=== PATIENT | male | born 1950 | race African-American/Black ===

== ENCOUNTER 2017-10-19 19:02 | Inpatient (IN) | payer MEDICARE, OTHER ==
[~2017-10-19] VITALS: Ht 180.3 cm; Wt 64.4 kg
[~2017-10-19 19:02] MED LIST: DIVA500T35 PO; GLIP5 PO; METF500T6 PO; RISP1 PO; RISP2 PO
[2017-10-19] MEDS ORDERED: ASPI-1182 PO (19:26)
[2017-10-19] MEDS ORDERED: DIVA500T35 PO (19:26)
[2017-10-19] MEDS ORDERED: ATOR40TA28 PO (19:26)
[2017-10-19] MEDS ORDERED: TAMS0.4C32 PO (19:26)
[2017-10-19] MEDS ORDERED: CLOP75 PO (19:26)
[2017-10-19] MEDS ORDERED: TRAZ-144 PO (19:26)
[2017-10-19] MEDS ORDERED: METF500T6 PO (19:26)
[2017-10-19] MEDS ORDERED: RANI150T7 PO (19:26)
[2017-10-19] MEDS ORDERED: LISI40TA4 PO (19:26)
[2017-10-19] MEDS ORDERED: RISP4 PO (19:26)
[2017-10-19] MEDS ORDERED: AMLO-512 PO (19:26)
[2017-10-19] MEDS ORDERED: PIOG15TA66 PO (19:26)
[2017-10-19 20:50] LABS: BASOPHILS % (AUTO) 0.8 % (0.0-2.0); EOSINOPHILS % (AUTO) 0 % (1.0-6.0); HEMATOCRIT 36.1 % (41-53); HEMOGLOBIN 12.1 g/dL (13.5-17.5); LYMPHOCYTES # (AUTO) 0.6 K/uL (1.0-4.8); LYMPHOCYTES % (AUTO) 4.8 % (22.0-44.0); MEAN CORPUSCULAR HEMOGLOBIN 25.1 pg (26.0-34.0); MEAN CORPUSCULAR HGB CONC 33.5 G/dL (31.0-37.0); MEAN CORPUSCULAR VOLUME 75 fL (80-100); MONOCYTES % (AUTO) 14.9 % (2.0-9.0); NEUTROPHILS # (AUTO) 10.5 K/uL (1.8-7.7); NEUTROPHILS % (AUTO) 79.5 % (40.0-70.0); PLATELET COUNT (AUTO) 212 K/uL (150-450); RED BLOOD CELL COUNT(AUTO) 4.82 MIL/uL (4.50-5.90); RED CELL DISTRIBUTION WIDTH 15.7 % (11.5-14.5)
[2017-10-19 21:04] LABS: ANION GAP 11 mmol/L (8-16); CALCIUM, TOTAL 9.4 mg/dL (8.8-10.5); CARBON DIOXIDE 27 mmol/L (22-29); CHLORIDE 97 mmol/L (98-107); CREATININE 1.12 mg/dL (0.60-1.30); GLOMERULAR FILTR. RATE CALC > 60 mL/min (>60); GLUCOSE,RANDOM 147 mg/dL (70-110); SODIUM SERUM 135 mmol/L (136-145); UREA NITROGEN, BLOOD 22 mg/dL (7-18)
[2017-10-19 21:09] LABS: ALANINE AMINOTRANSFERASE 30 U/L (12-78); ALKALINE PHOSPHATASE 70 U/L (46-116); ASPARTATE AMINOTRANSFERASE 63 U/L (15-37); BILIRUBIN,TOTAL 0.6 mg/dL (0.1-1.0); LIPASE 124 U/L (73-393); TOTAL PROTEIN, SERUM 8.8 g/dL (6.4-8.2)
[2017-10-19] MEDS ORDERED: ACETAMINOPHEN 500 MG TABLET PO ONE (23:00)
[2017-10-19] MEDS ORDERED: SODIUM CHLORIDE 0.9% 1,000 ML IV ONE (23:15)
[2017-10-19] MEDS: VANCOMYCIN HCL 1.25 GM in DEXTROSE 5%-WATER 250 ML IV ONE (23:26)
[2017-10-19] MEDS ORDERED: PIPERACILLIN/TAZO 3.375 GM/D5W 50 ML IV ONE (23:30)
[2017-10-19] MEDS ORDERED: 0.9% SODIUM CHLORIDE 10 ML SYRINGE IVP PRN (23:30)
[2017-10-19] MEDS ORDERED: ACETAMINOPHEN 325 MG TABLET PO PRN (23:30)
[2017-10-19] MEDS ORDERED: ONDANSETRON HCL 4 MG/2 ML VIAL IVP PRN (23:30)
[2017-10-20] VITALS (8 sets, daily range): BP systolic 124–156; BP diastolic 59–84
[2017-10-20] MEDS ORDERED: MORPHINE SULFATE 4 MG/ML SYRINGE IVP PRN (00:30)
[2017-10-20] MEDS ORDERED: ALBUTEROL SULFATE 2.5 MG/0.5 ML NEB SOLUTION NEB PRN (00:30)
[2017-10-20] MEDS ORDERED: BISACODYL 10 MG RECTAL RECTAL SUPPOSITORY PR PRN (00:30)
[2017-10-20] MEDS ORDERED: DEXTROSE 50%-WATER 25 GM/50 ML SYRINGE IVP PRN (00:30)
[2017-10-20] MEDS ORDERED: ONDANSETRON HCL 4 MG/2 ML VIAL IVP PRN (00:30)
[2017-10-20] MEDS ORDERED: ACETAMINOPHEN 325 MG TABLET PO PRN (00:30)
[2017-10-20] MEDS ORDERED: IPRATROPIUM BROMIDE 0.5 MG/2.5 ML NEB SOLUTION NEB PRN (00:30)
[2017-10-20] MEDS: VANCOMYCIN HCL 1.25 GM in DEXTROSE 5%-WATER 250 ML IV ONE (01:08)
[2017-10-20 01:23] LABS: VALPROIC ACID 91 mcg/mL (50-100)
[2017-10-20] MEDS: SODIUM CHLORIDE 0.9% 1,000 ML IV SCH ×2 (01:50→17:19)
[2017-10-20 02:32] LABS: GLUCOMETER DEV NAME(LOC) 6N 1E; GLUCOSE,POINT OF CARE 174 MG/DL (70-110)
[2017-10-20] MEDS: INSULIN LISPRO 100 UNITS/ML SQ PRN ×4 (05:33→20:06)
[2017-10-20] MEDS ORDERED: SODIUM CHLORIDE 0.9% 500 ML IV ONE (05:47)
[2017-10-20] MEDS ORDERED: PIPERACILLIN/TAZO 3.375 GM/D5W 50 ML IV SCH (06:00)
[2017-10-20] MEDS: PIPERACILLIN/TAZO 3.375 GM/D5W 50 ML IV SCH ×3 (06:01→17:12)
[2017-10-20 06:02] LABS: BASOPHILS % (AUTO) 0.3 % (0.0-2.0); EOSINOPHILS % (AUTO) 0 % (1.0-6.0); HEMATOCRIT 32.7 % (41-53); LYMPHOCYTES # (AUTO) 1.4 K/uL (1.0-4.8); LYMPHOCYTES % (AUTO) 9.5 % (22.0-44.0); MEAN CORPUSCULAR HEMOGLOBIN 25.1 pg (26.0-34.0); MEAN CORPUSCULAR HGB CONC 33.6 G/dL (31.0-37.0); MEAN CORPUSCULAR VOLUME 75 fL (80-100); MONOCYTES # (AUTO) 2.9 K/uL (0.1-1.0); NEUTROPHILS # (AUTO) 10.2 K/uL (1.8-7.7); NEUTROPHILS % (AUTO) 70.2 % (40.0-70.0); PLATELET COUNT (AUTO) 203 K/uL (150-450); RED BLOOD CELL COUNT(AUTO) 4.38 MIL/uL (4.50-5.90); RED CELL DISTRIBUTION WIDTH 15.5 % (11.5-14.5)
[2017-10-20 06:13] LABS: GLUCOMETER DEV NAME(LOC) 6N 2D; GLUCOSE,POINT OF CARE 182 MG/DL (70-110)
[2017-10-20 06:16] LABS: HEMOGLOBIN A1C 7.5 % (4.5-6.2)
[2017-10-20 06:40] LABS: % IRON SATURATION 10.3 % (30-44); IRON, SERUM 20 mcg/dL (50-175); TOTAL IRON BINDING CAPACITY 193 mcg/dL (250-450)
[2017-10-20 07:04] LABS: ALANINE AMINOTRANSFERASE 22 U/L (12-78); ALBUMIN 2.4 g/dL (3.4-5.0); ALKALINE PHOSPHATASE 50 U/L (46-116); ANION GAP 9 mmol/L (8-16); ASPARTATE AMINOTRANSFERASE 43 U/L (15-37); BILIRUBIN,TOTAL 0.5 mg/dL (0.1-1.0); CALCIUM, TOTAL 8.7 mg/dL (8.8-10.5); CARBON DIOXIDE 27 mmol/L (22-29); CHLORIDE 103 mmol/L (98-107); CREATININE 1.05 mg/dL (0.60-1.30); FERRITIN 495 ng/mL (26-388); FREE T4 (FREE THYROXINE) 1.24 ng/dL (0.76-1.46); GLOMERULAR FILTR. RATE CALC > 60 mL/min (>60); GLUCOSE,RANDOM 208 mg/dL (70-110); PHOSPHORUS 3.9 mg/dL (2.5-4.9); POTASSIUM 4.8 mmol/L (3.5-5.1); SODIUM SERUM 139 mmol/L (136-145); THYROID STIMULATING HORMONE 1.08 uIU/mL (0.36-3.74); TOTAL PROTEIN, SERUM 7.1 g/dL (6.4-8.2); UREA NITROGEN, BLOOD 22 mg/dL (7-18)
[2017-10-20 07:22] LABS: LACTIC ACID 4.4 mmol/L (0.4-2.0)
[2017-10-20] MEDS ORDERED: VANCOMYCIN HCL 750 MG in DEXTROSE 5%-WATER 250 ML IV SCH (08:00)
[2017-10-20] MEDS: DOCUSATE SODIUM 100 MG CAPSULE PO SCH ×2 (09:37→20:15)
[2017-10-20] MEDS: AmLODIPine BESYLATE 10 MG TABLET PO SCH (09:37)
[2017-10-20] MEDS: VANCOMYCIN HCL 1 GM/D5% WATER 200 ML IV SCH ×2 (09:37→20:03)
[2017-10-20] MEDS: ASPIRIN 81 MG EC TABLET PO SCH (09:38)
[2017-10-20] MEDS: CLOPIDOGREL BISULFATE 75 MG TABLET PO SCH (09:38)
[2017-10-20] MEDS: PANTOPRAZOLE SODIUM 40 MG DR TABLET PO SCH (09:39)
[2017-10-20] MEDS: ATORVASTATIN CALCIUM 40 MG TABLET PO SCH (09:39)
[2017-10-20] MEDS: LISINOPRIL 20 MG TABLET PO SCH (09:39)
[2017-10-20] MEDS: TAMSULOSIN HCL 0.4 MG CAPSULE PO SCH (09:39)
[2017-10-20] MEDS: HEPARIN SODIUM,PORCINE 5,000 UNITS/ML VIAL SQ SCH ×2 (09:41→20:04)
[2017-10-20 10:03] LABS: FOLATE SERUM 10.2 ng/mL (5.4-)
[2017-10-20] MEDS ORDERED: LORazepam 2 MG/ML VIAL IVP ONE (10:45)
[2017-10-20] MEDS ORDERED: TRAZ-147 PO (11:22)
[2017-10-20] MEDS: DIVALPROEX SODIUM 500 MG DR TABLET PO SCH ×3 (11:31→20:03)
[2017-10-20] MEDS: RisperiDONE 4 MG TABLET PO SCH (11:31)
[2017-10-20] MEDS ORDERED: LOPERAMIDE HCL 2 MG CAPSULE PO ONE (17:00)
[2017-10-21] MEDS: PIPERACILLIN/TAZO 3.375 GM/D5W 50 ML IV SCH ×5 (01:04→23:25)
[2017-10-21 04:43] VITALS: BP 154/76
[2017-10-21] MEDS: INSULIN LISPRO 100 UNITS/ML SQ PRN ×4 (05:17→20:06)
[2017-10-21 06:25] LABS: ANION GAP 6 mmol/L (8-16); CALCIUM, TOTAL 8.5 mg/dL (8.8-10.5); CARBON DIOXIDE 29 mmol/L (22-29); CHLORIDE 99 mmol/L (98-107); CREATININE 0.92 mg/dL (0.60-1.30); GLOMERULAR FILTR. RATE CALC > 60 mL/min (>60); GLUCOSE,RANDOM 175 mg/dL (70-110); POTASSIUM 3.5 mmol/L (3.5-5.1); SODIUM SERUM 134 mmol/L (136-145); UREA NITROGEN, BLOOD 14 mg/dL (7-18); VANCOMYCIN,RANDOM 7.1 mcg/mL (25.0-50.0)
[2017-10-21 06:31] LABS: BASOPHILS % (AUTO) 0.7 % (0.0-2.0); EOSINOPHILS % (AUTO) 0.9 % (1.0-6.0); HEMATOCRIT 31.7 % (41-53); HEMOGLOBIN 10.5 g/dL (13.5-17.5); LYMPHOCYTES # (AUTO) 1.5 K/uL (1.0-4.8); LYMPHOCYTES % (AUTO) 12.3 % (22.0-44.0); MEAN CORPUSCULAR HEMOGLOBIN 25.5 pg (26.0-34.0); MEAN CORPUSCULAR HGB CONC 33.2 G/dL (31.0-37.0); MEAN CORPUSCULAR VOLUME 77 fL (80-100); MONOCYTES # (AUTO) 1.6 K/uL (0.1-1.0); MONOCYTES % (AUTO) 13.8 % (2.0-9.0); NEUTROPHILS # (AUTO) 8.5 K/uL (1.8-7.7); NEUTROPHILS % (AUTO) 72.3 % (40.0-70.0); PLATELET COUNT (AUTO) 171 K/uL (150-450); RED BLOOD CELL COUNT(AUTO) 4.12 MIL/uL (4.50-5.90); RED CELL DISTRIBUTION WIDTH 15.9 % (11.5-14.5)
[2017-10-21 07:48] VITALS: BP 141/77
[2017-10-21] MEDS: VANCOMYCIN HCL 1 GM/D5% WATER 200 ML IV SCH (09:03)
[2017-10-21] MEDS: SODIUM CHLORIDE 0.9% 1,000 ML IV SCH ×2 (09:03→20:07)
[2017-10-21] MEDS: RisperiDONE 4 MG TABLET PO SCH (09:04)
[2017-10-21] MEDS: TAMSULOSIN HCL 0.4 MG CAPSULE PO SCH (09:04)
[2017-10-21] MEDS: ASPIRIN 81 MG EC TABLET PO SCH (09:04)
[2017-10-21] MEDS: PANTOPRAZOLE SODIUM 40 MG DR TABLET PO SCH (09:04)
[2017-10-21] MEDS: DIVALPROEX SODIUM 500 MG DR TABLET PO SCH ×3 (09:04→20:09)
[2017-10-21] MEDS: ATORVASTATIN CALCIUM 40 MG TABLET PO SCH (09:04)
[2017-10-21] MEDS: CLOPIDOGREL BISULFATE 75 MG TABLET PO SCH (09:04)
[2017-10-21] MEDS: AmLODIPine BESYLATE 10 MG TABLET PO SCH (09:04)
[2017-10-21] MEDS: DOCUSATE SODIUM 100 MG CAPSULE PO SCH ×2 (09:04→20:08)
[2017-10-21] MEDS: LISINOPRIL 20 MG TABLET PO SCH (09:04)
[2017-10-21] MEDS: HEPARIN SODIUM,PORCINE 5,000 UNITS/ML VIAL SQ SCH ×2 (09:05→20:09)
[2017-10-21 12:00] VITALS: BP 133/68
[2017-10-21 17:18] LABS: GLUCOMETER DEV NAME(LOC) 5N 1P; GLUCOSE,POINT OF CARE 177 MG/DL (70-110)
[2017-10-21 17:18] LABS: GLUCOMETER DEV NAME(LOC) 5N 1P; GLUCOSE,POINT OF CARE 179 MG/DL (70-110)
[2017-10-21 17:18] LABS: GLUCOMETER DEV NAME(LOC) 5N 1P; GLUCOSE,POINT OF CARE 223 MG/DL (70-110)
[2017-10-21 17:18] LABS: GLUCOMETER DEV NAME(LOC) 5N 1P; GLUCOSE,POINT OF CARE 183 MG/DL (70-110)
[2017-10-21] MEDS: VANCOMYCIN HCL 750 MG in DEXTROSE 5%-WATER 250 ML IV SCH (17:22)
[2017-10-21 20:09] VITALS: BP 120/69
[2017-10-21 20:28] LABS: GLUCOMETER DEV NAME(LOC) 5N 2S; GLUCOSE,POINT OF CARE 183 MG/DL (70-110)
[2017-10-21 23:32] LABS: GLUCOMETER DEV NAME(LOC) 5N 1P; GLUCOSE,POINT OF CARE 358 MG/DL (70-110)
[2017-10-21 23:32] LABS: GLUCOMETER DEV NAME(LOC) 5N 1P; GLUCOSE,POINT OF CARE 260 MG/DL (70-110)
[2017-10-22 00:10] VITALS: BP 129/50
[2017-10-22] MEDS: VANCOMYCIN HCL 750 MG in DEXTROSE 5%-WATER 250 ML IV SCH ×4 (00:14→23:30)
[2017-10-22 04:21] VITALS: BP 150/79
[2017-10-22] MEDS: PIPERACILLIN/TAZO 3.375 GM/D5W 50 ML IV SCH ×4 (05:12→23:05)
[2017-10-22] MEDS: INSULIN LISPRO 100 UNITS/ML SQ PRN ×4 (05:19→21:37)
[2017-10-22 06:49] LABS: ANION GAP 4 mmol/L (8-16); CALCIUM, TOTAL 8.4 mg/dL (8.8-10.5); CARBON DIOXIDE 27 mmol/L (22-29); CHLORIDE 100 mmol/L (98-107); CREATININE 0.82 mg/dL (0.60-1.30); GLOMERULAR FILTR. RATE CALC > 60 mL/min (>60); GLUCOSE,RANDOM 146 mg/dL (70-110); POTASSIUM 3.5 mmol/L (3.5-5.1); SODIUM SERUM 131 mmol/L (136-145); UREA NITROGEN, BLOOD 12 mg/dL (7-18)
[2017-10-22 08:51] VITALS: BP 139/76
[2017-10-22] MEDS: AmLODIPine BESYLATE 10 MG TABLET PO SCH (08:52)
[2017-10-22] MEDS: DOCUSATE SODIUM 100 MG CAPSULE PO SCH ×2 (08:52→21:35)
[2017-10-22] MEDS: SODIUM CHLORIDE 0.9% 1,000 ML IV SCH ×2 (08:52→21:30)
[2017-10-22] MEDS: TAMSULOSIN HCL 0.4 MG CAPSULE PO SCH (08:52)
[2017-10-22] MEDS: PANTOPRAZOLE SODIUM 40 MG DR TABLET PO SCH (08:53)
[2017-10-22] MEDS: RisperiDONE 4 MG TABLET PO SCH (08:53)
[2017-10-22] MEDS: HEPARIN SODIUM,PORCINE 5,000 UNITS/ML VIAL SQ SCH ×2 (08:53→21:35)
[2017-10-22] MEDS: CLOPIDOGREL BISULFATE 75 MG TABLET PO SCH (08:53)
[2017-10-22] MEDS: ASPIRIN 81 MG EC TABLET PO SCH (08:53)
[2017-10-22] MEDS: LISINOPRIL 20 MG TABLET PO SCH (08:53)
[2017-10-22] MEDS: ATORVASTATIN CALCIUM 40 MG TABLET PO SCH (08:53)
[2017-10-22] MEDS: DIVALPROEX SODIUM 500 MG DR TABLET PO SCH ×3 (08:53→21:35)
[2017-10-22 11:38] VITALS: BP 138/69
[2017-10-22 12:38] LABS: APPEARANCE,URINE CLEAR (CLEAR); BILIRUBIN,URINE NEGATIVE (NEGATIVE); GLUCOSE, URINE (UA) >=1000 mg/dL (NEGATIVE); KETONES,URINE TRACE mg/dL (NEGATIVE); LEUKOCYTE ESTERASE ,URINE NEGATIVE (NEGATIVE); NITRATE,URINE NEGATIVE (NEGATIVE); OCCULT BLOOD,URINE LARGE (NEGATIVE); PH,URINE 7.5 (5.0-8.0); PROTEIN,URINE NEGATIVE (NEGATIVE)
[2017-10-22 12:51] LABS: BACTERIA,URINE None Seen /HPF (None Seen); RBC,URINE 26-50 /HPF (0-2); WBC,URINE None Seen /HPF (0-5)
[2017-10-22 15:57] VITALS: BP 143/70
[2017-10-22 20:06] VITALS: BP 122/67
[2017-10-23] VITALS (7 sets, daily range): BP systolic 124–147; BP diastolic 69–80
[2017-10-23 00:18] LABS: GLUCOMETER DEV NAME(LOC) 5N 2S; GLUCOSE,POINT OF CARE 168 MG/DL (70-110)
[2017-10-23] MEDS: PIPERACILLIN/TAZO 3.375 GM/D5W 50 ML IV SCH ×4 (05:08→23:33)
[2017-10-23 06:30] LABS: BASOPHILS % (AUTO) 0.5 % (0.0-2.0); EOSINOPHILS % (AUTO) 1.8 % (1.0-6.0); HEMATOCRIT 30.4 % (41-53); HEMOGLOBIN 10.3 g/dL (13.5-17.5); LYMPHOCYTES # (AUTO) 1.2 K/uL (1.0-4.8); LYMPHOCYTES % (AUTO) 14.3 % (22.0-44.0); MEAN CORPUSCULAR HEMOGLOBIN 25.1 pg (26.0-34.0); MEAN CORPUSCULAR HGB CONC 33.9 G/dL (31.0-37.0); MEAN CORPUSCULAR VOLUME 74 fL (80-100); MONOCYTES # (AUTO) 1.9 K/uL (0.1-1.0); NEUTROPHILS # (AUTO) 5.1 K/uL (1.8-7.7); NEUTROPHILS % (AUTO) 60.4 % (40.0-70.0); PLATELET COUNT (AUTO) 237 K/uL (150-450); RED BLOOD CELL COUNT(AUTO) 4.12 MIL/uL (4.50-5.90); RED CELL DISTRIBUTION WIDTH 15.7 % (11.5-14.5)
[2017-10-23] MEDS: INSULIN LISPRO 100 UNITS/ML SQ PRN ×4 (06:31→21:33)
[2017-10-23 06:33] LABS: GLUCOMETER DEV NAME(LOC) 5S 2P; GLUCOSE,POINT OF CARE 189 MG/DL (70-110)
[2017-10-23 06:33] LABS: GLUCOMETER DEV NAME(LOC) 5S 2P; GLUCOSE,POINT OF CARE 157 MG/DL (70-110)
[2017-10-23 06:51] LABS: ANION GAP 5 mmol/L (8-16); CALCIUM, TOTAL 8.7 mg/dL (8.8-10.5); CARBON DIOXIDE 30 mmol/L (22-29); CHLORIDE 99 mmol/L (98-107); CREATININE 0.78 mg/dL (0.60-1.30); GLOMERULAR FILTR. RATE CALC > 60 mL/min (>60); GLUCOSE,RANDOM 174 mg/dL (70-110); POTASSIUM 3.6 mmol/L (3.5-5.1); SODIUM SERUM 134 mmol/L (136-145); UREA NITROGEN, BLOOD 15 mg/dL (7-18); VANCOMYCIN,RANDOM 11.7 mcg/mL (25.0-50.0)
[2017-10-23] MEDS: AmLODIPine BESYLATE 10 MG TABLET PO SCH (08:53)
[2017-10-23] MEDS: ASPIRIN 81 MG EC TABLET PO SCH (08:53)
[2017-10-23] MEDS: DOCUSATE SODIUM 100 MG CAPSULE PO SCH ×2 (08:53→21:24)
[2017-10-23] MEDS: TAMSULOSIN HCL 0.4 MG CAPSULE PO SCH (08:53)
[2017-10-23] MEDS: ATORVASTATIN CALCIUM 40 MG TABLET PO SCH (08:53)
[2017-10-23] MEDS: HEPARIN SODIUM,PORCINE 5,000 UNITS/ML VIAL SQ SCH ×2 (08:53→21:24)
[2017-10-23] MEDS: DIVALPROEX SODIUM 500 MG DR TABLET PO SCH ×3 (08:53→21:24)
[2017-10-23] MEDS: CLOPIDOGREL BISULFATE 75 MG TABLET PO SCH (08:53)
[2017-10-23] MEDS: LISINOPRIL 20 MG TABLET PO SCH (08:53)
[2017-10-23] MEDS: RisperiDONE 4 MG TABLET PO SCH (08:53)
[2017-10-23] MEDS: PANTOPRAZOLE SODIUM 40 MG DR TABLET PO SCH (08:53)
[2017-10-23] MEDS: VANCOMYCIN HCL 750 MG in DEXTROSE 5%-WATER 250 ML IV SCH ×2 (08:54→15:37)
[2017-10-23] MEDS: SODIUM CHLORIDE 0.9% 1,000 ML IV SCH ×2 (10:57→23:33)
[2017-10-23 13:27] LABS: GLUCOMETER DEV NAME(LOC) 5S 1M; GLUCOSE,POINT OF CARE 358 MG/DL (70-110)
[2017-10-23 13:27] LABS: GLUCOMETER DEV NAME(LOC) 5S 1M; GLUCOSE,POINT OF CARE 304 MG/DL (70-110)
[2017-10-23 13:27] LABS: GLUCOMETER DEV NAME(LOC) 5S 1M; GLUCOSE,POINT OF CARE 198 MG/DL (70-110)
[2017-10-23] MEDS: VANCOMYCIN HCL 1 GM/D5% WATER 200 ML IV SCH (23:34)
[2017-10-24 05:00] VITALS: BP 133/79
[2017-10-24] MEDS: MAGNESIUM HYDROXIDE SUSPENSION 30 ML UDCUP PO PRN ×2 (05:17→18:03)
[2017-10-24] MEDS: PIPERACILLIN/TAZO 3.375 GM/D5W 50 ML IV SCH ×3 (05:17→17:28)
[2017-10-24] MEDS: INSULIN LISPRO 100 UNITS/ML SQ PRN ×4 (05:45→20:54)
[2017-10-24 06:47] LABS: ANION GAP 4 mmol/L (8-16); CALCIUM, TOTAL 8.9 mg/dL (8.8-10.5); CARBON DIOXIDE 30 mmol/L (22-29); CHLORIDE 101 mmol/L (98-107); CREATININE 0.84 mg/dL (0.60-1.30); GLOMERULAR FILTR. RATE CALC > 60 mL/min (>60); GLUCOSE,RANDOM 214 mg/dL (70-110); POTASSIUM 3.9 mmol/L (3.5-5.1); SODIUM SERUM 135 mmol/L (136-145); UREA NITROGEN, BLOOD 13 mg/dL (7-18)
[2017-10-24 07:52] VITALS: BP 144/75
[2017-10-24] MEDS: RisperiDONE 4 MG TABLET PO SCH (08:13)
[2017-10-24] MEDS: DIVALPROEX SODIUM 500 MG DR TABLET PO SCH ×3 (08:13→20:52)
[2017-10-24] MEDS: PANTOPRAZOLE SODIUM 40 MG DR TABLET PO SCH (08:13)
[2017-10-24] MEDS: ATORVASTATIN CALCIUM 40 MG TABLET PO SCH (08:13)
[2017-10-24] MEDS: TAMSULOSIN HCL 0.4 MG CAPSULE PO SCH (08:13)
[2017-10-24] MEDS: LISINOPRIL 20 MG TABLET PO SCH (08:13)
[2017-10-24] MEDS: ASPIRIN 81 MG EC TABLET PO SCH (08:13)
[2017-10-24] MEDS: CLOPIDOGREL BISULFATE 75 MG TABLET PO SCH (08:13)
[2017-10-24] MEDS: HEPARIN SODIUM,PORCINE 5,000 UNITS/ML VIAL SQ SCH ×2 (08:13→20:52)
[2017-10-24] MEDS: AmLODIPine BESYLATE 10 MG TABLET PO SCH (08:13)
[2017-10-24] MEDS: DOCUSATE SODIUM 100 MG CAPSULE PO SCH ×2 (08:14→20:59)
[2017-10-24] MEDS: VANCOMYCIN HCL 1 GM/D5% WATER 200 ML IV SCH ×2 (08:14→16:09)
[2017-10-24 08:52] LABS: GLUCOMETER DEV NAME(LOC) 5S 2P; GLUCOSE,POINT OF CARE 285 MG/DL (70-110)
[2017-10-24 11:29] VITALS: BP 137/70
[2017-10-24] MEDS: INSULIN GLARGINE,HUM.REC.ANLOG 100 UNITS/ML SQ SCH (12:17)
[2017-10-24 15:28] VITALS: BP 139/65
[2017-10-24] MEDS: SODIUM CHLORIDE 0.9% 1,000 ML IV SCH (16:10)
[2017-10-24 16:13] LABS: GLUCOMETER DEV NAME(LOC) 5N 1P; GLUCOSE,POINT OF CARE 289 MG/DL (70-110)
[2017-10-24 19:58] LABS: GLUCOMETER DEV NAME(LOC) 5S 1M; GLUCOSE,POINT OF CARE 288 MG/DL (70-110)
[2017-10-24 20:00] VITALS: BP 112/64
[2017-10-25] VITALS (8 sets, daily range): BP systolic 108–147; BP diastolic 58–82
[2017-10-25] MEDS: PIPERACILLIN/TAZO 3.375 GM/D5W 50 ML IV SCH ×2 (00:40→05:32)
[2017-10-25] MEDS: VANCOMYCIN HCL 1 GM/D5% WATER 200 ML IV SCH (00:43)
[2017-10-25] MEDS: INSULIN LISPRO 100 UNITS/ML SQ PRN ×4 (05:42→21:25)
[2017-10-25 07:27] LABS: ANION GAP 4 mmol/L (8-16); CALCIUM, TOTAL 8.7 mg/dL (8.8-10.5); CARBON DIOXIDE 30 mmol/L (22-29); CHLORIDE 98 mmol/L (98-107); CREATININE 0.85 mg/dL (0.60-1.30); GLOMERULAR FILTR. RATE CALC > 60 mL/min (>60); GLUCOSE,RANDOM 290 mg/dL (70-110); POTASSIUM 4.1 mmol/L (3.5-5.1); SODIUM SERUM 132 mmol/L (136-145); UREA NITROGEN, BLOOD 16 mg/dL (7-18)
[2017-10-25] MEDS: ATORVASTATIN CALCIUM 40 MG TABLET PO SCH (10:14)
[2017-10-25] MEDS: PANTOPRAZOLE SODIUM 40 MG DR TABLET PO SCH (10:14)
[2017-10-25] MEDS: TAMSULOSIN HCL 0.4 MG CAPSULE PO SCH (10:14)
[2017-10-25] MEDS: DIVALPROEX SODIUM 500 MG DR TABLET PO SCH ×3 (10:14→21:17)
[2017-10-25] MEDS: CLOPIDOGREL BISULFATE 75 MG TABLET PO SCH (10:15)
[2017-10-25] MEDS: LISINOPRIL 20 MG TABLET PO SCH (10:15)
[2017-10-25] MEDS: AmLODIPine BESYLATE 10 MG TABLET PO SCH (10:15)
[2017-10-25] MEDS: DOCUSATE SODIUM 100 MG CAPSULE PO SCH ×2 (10:15→21:17)
[2017-10-25] MEDS: HEPARIN SODIUM,PORCINE 5,000 UNITS/ML VIAL SQ SCH ×2 (10:15→21:17)
[2017-10-25] MEDS: ASPIRIN 81 MG EC TABLET PO SCH (10:16)
[2017-10-25] MEDS: RisperiDONE 4 MG TABLET PO SCH (10:17)
[2017-10-25] MEDS: INSULIN GLARGINE,HUM.REC.ANLOG 100 UNITS/ML SQ SCH (10:27)
[2017-10-25] MEDS: CefTRIAXone SODIUM 1 GM in DEXTROSE 5%-WATER 10 ML IV SCH (11:54)
[2017-10-25] MEDS: HYDROCODONE/ACETAMINOPHEN 5-325 MG TABLET PO PRN ×2 (12:02→21:17)
[2017-10-25 18:33] LABS: GLUCOMETER DEV NAME(LOC) 6N 1E; GLUCOSE,POINT OF CARE 206 MG/DL (70-110)
[2017-10-25 23:08] LABS: GLUCOMETER DEV NAME(LOC) 6N 2D; GLUCOSE,POINT OF CARE 268 MG/DL (70-110)
[2017-10-25 23:24] LABS: GLUCOMETER DEV NAME(LOC) 5N 2S; GLUCOSE,POINT OF CARE 203 MG/DL (70-110)
[2017-10-25 23:24] LABS: GLUCOMETER DEV NAME(LOC) 5N 2S; GLUCOSE,POINT OF CARE 272 MG/DL (70-110)
[2017-10-25 23:24] LABS: GLUCOMETER DEV NAME(LOC) 5N 2S; GLUCOSE,POINT OF CARE 321 MG/DL (70-110)
[2017-10-25 23:24] LABS: GLUCOMETER DEV NAME(LOC) 5N 2S; GLUCOSE,POINT OF CARE 277 MG/DL (70-110)
[2017-10-25 23:24] LABS: GLUCOMETER DEV NAME(LOC) 5N 2S; GLUCOSE,POINT OF CARE 227 MG/DL (70-110)
[2017-10-26 04:55] VITALS: BP 138/73
[2017-10-26] MEDS: INSULIN LISPRO 100 UNITS/ML SQ PRN ×2 (06:01→11:43)
[2017-10-26 06:13] LABS: GLUCOMETER DEV NAME(LOC) 6N 2D; GLUCOSE,POINT OF CARE 248 MG/DL (70-110)
[2017-10-26 07:31] VITALS: BP 118/66
[2017-10-26 08:03] LABS: ANION GAP 5 mmol/L (8-16); CALCIUM, TOTAL 8.7 mg/dL (8.8-10.5); CARBON DIOXIDE 29 mmol/L (22-29); CHLORIDE 99 mmol/L (98-107); CREATININE 0.85 mg/dL (0.60-1.30); GLOMERULAR FILTR. RATE CALC > 60 mL/min (>60); GLUCOSE,RANDOM 160 mg/dL (70-110); POTASSIUM 4.6 mmol/L (3.5-5.1); SODIUM SERUM 133 mmol/L (136-145); UREA NITROGEN, BLOOD 21 mg/dL (7-18); VANCOMYCIN,RANDOM 3.9 mcg/mL (25.0-50.0)
[2017-10-26] MEDS ORDERED: INSULIN GLARGINE,HUM.REC.ANLOG 100 UNITS/ML SQ SCH (09:00)
[2017-10-26 09:23] LABS: GLUCOMETER DEV NAME(LOC) 6N 1E; GLUCOSE,POINT OF CARE 204 MG/DL (70-110)
[2017-10-26] MEDS: LISINOPRIL 20 MG TABLET PO SCH (09:23)
[2017-10-26] MEDS: PANTOPRAZOLE SODIUM 40 MG DR TABLET PO SCH (09:23)
[2017-10-26] MEDS: DIVALPROEX SODIUM 500 MG DR TABLET PO SCH (09:23)
[2017-10-26] MEDS: CLOPIDOGREL BISULFATE 75 MG TABLET PO SCH (09:23)
[2017-10-26] MEDS: TAMSULOSIN HCL 0.4 MG CAPSULE PO SCH (09:23)
[2017-10-26] MEDS: DOCUSATE SODIUM 100 MG CAPSULE PO SCH (09:23)
[2017-10-26] MEDS: ASPIRIN 81 MG EC TABLET PO SCH (09:23)
[2017-10-26] MEDS: AmLODIPine BESYLATE 10 MG TABLET PO SCH (09:23)
[2017-10-26] MEDS: ATORVASTATIN CALCIUM 40 MG TABLET PO SCH (09:23)
[2017-10-26] MEDS: RisperiDONE 4 MG TABLET PO SCH (09:23)
[2017-10-26] MEDS: HEPARIN SODIUM,PORCINE 5,000 UNITS/ML VIAL SQ SCH (09:24)
[2017-10-26 11:20] VITALS: BP 102/59
[2017-10-26 11:28] LABS: GLUCOMETER DEV NAME(LOC) 6N 2D; GLUCOSE,POINT OF CARE 256 MG/DL (70-110)
[2017-10-26] MEDS: CefTRIAXone SODIUM 1 GM in DEXTROSE 5%-WATER 10 ML IV SCH (12:16)
== END 2017-10-26 14:35 | disposition home health service (06) | DRG 871 ==
LOC: EMS 19:03 → 6N 10-20 00:01 → 5S 10-20 05:23 → 6N 10-25 13:05
PROVIDERS: ADMIT Internal Medicine; ATTEND Internal Medicine
PROC: 0S9D3ZZ Drainage of Left Knee Joint, Percutaneous Approach (ICD-10-PCS; principal; 2017-10-20)
DX: A41.9 Sepsis, unspecified organism (principal); G92 Toxic encephalopathy; E87.2 Acidosis; L03.116 Cellulitis of left lower limb; G89.29 Other chronic pain; I10 Essential (primary) hypertension; I25.10 Atherosclerotic heart disease of native coronary artery without angina pectoris; M71.10 Other infective bursitis, unspecified site; E11.9 Type 2 diabetes mellitus without complications; B95.5 Unspecified streptococcus as the cause of diseases classified elsewhere; S83.289A Other tear of lateral meniscus, current injury, unspecified knee, initial encounter; Z95.5 Presence of coronary angioplasty implant and graft; Z72.0 Tobacco use; Z79.82 Long term (current) use of aspirin; Z79.02 Long term (current) use of antithrombotics/antiplatelets; Z79.84 Long term (current) use of oral hypoglycemic drugs; Z79.899 Other long term (current) drug therapy; W19.XXXA Unspecified fall, initial encounter; Y93.89 Activity, other specified; Y92.89 Other specified places as the place of occurrence of the external cause; Y99.8 Other external cause status
CPT/HCPCS: 73721; 74176; 82270; 82607; 82728; 82746; 83036; 83540; 83550; 83605; 83735; 84100; 84145; 84439; 84443; 85651; 86140; 87040; 87070; 87081; 87147; 87205; 89060; 93005; 93971; 97116; 97162; 97166; 97530; 97535; 99285; G0480; J0696; J1644; J1815; J2060; J2543; J3370; J7030; J7040; J7060

== ENCOUNTER 2018-04-18 13:19 | Emergency (ER) | payer MEDICARE, OTHER ==
[~2018-04-18] VITALS: Ht 180.3 cm; Wt 71.4 kg
[~2018-04-18 13:19] MED LIST changes: +AMLO-512 PO; +ASPI-1182 PO; +ATOR40TA28 PO; +CLOP75 PO; +DIVA-78 PO; -DIVA500T35 PO; +LISI40TA4 PO; +METF-960 PO; -METF500T6 PO; +RANI150T7 PO; -RISP1 PO; -RISP2 PO; +RISP4 PO; +TAMS0.4C32 PO
[2018-04-18 14:12] LABS: BASOPHILS % (AUTO) 0.7 % (0.0-2.0); EOSINOPHILS % (AUTO) 0.9 % (1.0-6.0); HEMATOCRIT 34.5 % (41-53); HEMOGLOBIN 11.2 g/dL (13.5-17.5); LYMPHOCYTES # (AUTO) 1.3 K/uL (1.0-4.8); LYMPHOCYTES % (AUTO) 28.1 % (22.0-44.0); MEAN CORPUSCULAR HEMOGLOBIN 24.8 pg (26.0-34.0); MEAN CORPUSCULAR HGB CONC 32.5 G/dL (31.0-37.0); MEAN CORPUSCULAR VOLUME 77 fL (80-100); MONOCYTES # (AUTO) 0.4 K/uL (0.1-1.0); MONOCYTES % (AUTO) 7.5 % (2.0-9.0); NEUTROPHILS % (AUTO) 62.8 % (40.0-70.0); PLATELET COUNT (AUTO) 240 K/uL (150-450); RED BLOOD CELL COUNT(AUTO) 4.51 MIL/uL (4.50-5.90); RED CELL DISTRIBUTION WIDTH 16.9 % (11.5-14.5)
[2018-04-18 14:23] LABS: ALANINE AMINOTRANSFERASE 30 U/L (12-78); ALBUMIN 3.2 g/dL (3.4-5.0); ALKALINE PHOSPHATASE 79 U/L (46-116); ANION GAP 3 mmol/L (8-16); ASPARTATE AMINOTRANSFERASE 28 U/L (15-37); BILIRUBIN,TOTAL 0.5 mg/dL (0.1-1.0); CALCIUM, TOTAL 8.8 mg/dL (8.8-10.5); CARBON DIOXIDE 32 mmol/L (22-29); CHLORIDE 104 mmol/L (98-107); CREATININE 0.86 mg/dL (0.60-1.30); GLOMERULAR FILTR. RATE CALC > 60 mL/min (>60); POTASSIUM 4.2 mmol/L (3.5-5.1); SODIUM SERUM 139 mmol/L (136-145); UREA NITROGEN, BLOOD 21 mg/dL (7-18)
[2018-04-18 14:23] LABS: AMPHET/METH SCREEN,URINE NEGATIVE (NEGATIVE); BARBITURATE SCREEN, URINE NEGATIVE (NEGATIVE); BENZODIAZEPINES SCREEN,URINE NEGATIVE (NEGATIVE); CANNABINOID SCREEN,URINE NEGATIVE (NEGATIVE); COCAINE SCREEN,URINE NEGATIVE (NEGATIVE); METHADONE SCREEN, URINE NEGATIVE (NEGATIVE); OPIATE SCREEN,URINE NEGATIVE (NEGATIVE)
[2018-04-18 14:24] LABS: GLUCOSE,RANDOM 423 mg/dL (70-110)
[2018-04-18 14:25] LABS: PHENCYCLIDINE SCREEN,URINE NEGATIVE (NEGATIVE)
[2018-04-18] MEDS ORDERED: SODIUM CHLORIDE 0.9% 1,000 ML IV ONE (14:30)
[2018-04-18] MEDS ORDERED: INSULIN REGULAR, HUMAN 100 UNITS/ML IVP ONE (14:30)
[2018-04-18 14:59] LABS: GLUCOSE,POINT OF CARE 339 MG/DL (70-110)
[2018-04-18 15:58] LABS: GLUCOSE,POINT OF CARE 149 MG/DL (70-110)
[2018-04-18] MEDS ORDERED: CloNIDine HCL 0.2 MG TABLET PO ONE (17:45)
[2018-04-18 18:46] VITALS: BP 147/81
== END 2018-04-18 20:06 | disposition home or self-care (01) ==
LOC: EMS 13:20
DX: F25.9 Schizoaffective disorder, unspecified (principal); L03.116 Cellulitis of left lower limb; E11.9 Type 2 diabetes mellitus without complications; F17.210 Nicotine dependence, cigarettes, uncomplicated; Z79.82 Long term (current) use of aspirin; Z79.84 Long term (current) use of oral hypoglycemic drugs; Z79.899 Other long term (current) drug therapy
CPT/HCPCS: 36415; 80053; 80307; 82948; 82962; 85025; 96374; 99285; G0480; J1815

== ENCOUNTER 2018-11-06 01:53 | Emergency (ER) | payer MEDICARE, OTHER ==
[~2018-11-06] VITALS: Ht 167.6 cm; Wt 64.3 kg
[~2018-11-06 01:53] MED LIST changes: -CLOP75 PO; +CLOP75TA3 PO
[2018-11-06 02:56] LABS: BASOPHILS % (AUTO) 1.2 % (0.0-2.0); EOSINOPHILS % (AUTO) 2.3 % (1.0-6.0); HEMATOCRIT 37.9 % (41-53); LYMPHOCYTES # (AUTO) 1.6 K/uL (1.0-4.8); LYMPHOCYTES % (AUTO) 38.9 % (22.0-44.0); MEAN CORPUSCULAR HEMOGLOBIN 23.4 pg (26.0-34.0); MEAN CORPUSCULAR HGB CONC 31.6 G/dL (31.0-37.0); MEAN CORPUSCULAR VOLUME 74 fL (80-100); MONOCYTES # (AUTO) 0.4 K/uL (0.1-1.0); MONOCYTES % (AUTO) 10.6 % (2.0-9.0); NEUTROPHILS # (AUTO) 1.9 K/uL (1.8-7.7); PLATELET COUNT (AUTO) 199 K/uL (150-450); RED CELL DISTRIBUTION WIDTH 18.9 % (11.5-14.5)
[2018-11-06 03:03] LABS: ANION GAP 4 mmol/L (8-16); CALCIUM, TOTAL 9.1 mg/dL (8.8-10.5); CARBON DIOXIDE 29 mmol/L (22-29); CHLORIDE 106 mmol/L (98-107); CREATININE 0.88 mg/dL (0.60-1.30); GLOMERULAR FILTR. RATE CALC > 60 mL/min (>60); GLUCOSE,RANDOM 259 mg/dL (70-110); POTASSIUM 3.7 mmol/L (3.5-5.1); SODIUM SERUM 139 mmol/L (136-145); UREA NITROGEN, BLOOD 20 mg/dL (7-18)
[2018-11-06 03:09] LABS: ALANINE AMINOTRANSFERASE 31 U/L (12-78); ALBUMIN 3.3 g/dL (3.4-5.0); ALKALINE PHOSPHATASE 66 U/L (46-116); ASPARTATE AMINOTRANSFERASE 26 U/L (15-37); BILIRUBIN,TOTAL 0.5 mg/dL (0.1-1.0); TOTAL PROTEIN, SERUM 6.5 g/dL (6.4-8.2)
[2018-11-06 04:10] VITALS: BP 147/79
== END 2018-11-06 05:46 | disposition home or self-care (01) ==
LOC: EMS 01:53
DX: F20.0 Paranoid schizophrenia (principal); M79.671 Pain in right foot; E11.9 Type 2 diabetes mellitus without complications; I10 Essential (primary) hypertension; F17.210 Nicotine dependence, cigarettes, uncomplicated; Z79.84 Long term (current) use of oral hypoglycemic drugs; Z79.82 Long term (current) use of aspirin
CPT/HCPCS: 36415; 80053; 85025; 99285; 99406; G0480

== ENCOUNTER 2019-06-03 07:26 | Inpatient (IN) | payer MEDICARE, MEDICAID ==
[~2019-06-03] VITALS: Ht 170.2 cm; Wt 62.7 kg
[~2019-06-03 07:26] MED LIST changes: -AMLO-512 PO; +AMLO10TA7 PO; +TAMS-13 PO; -TAMS0.4C32 PO
[2019-06-03 08:09] LABS: BASOPHILS % (AUTO) 1.1 % (0.0-2.0); EOSINOPHILS % (AUTO) 2.3 % (1.0-6.0); HEMATOCRIT 41.9 % (41-53); HEMOGLOBIN 13.4 g/dL (13.5-17.5); LYMPHOCYTES # (AUTO) 1.2 K/uL (1.0-4.8); LYMPHOCYTES % (AUTO) 24.8 % (22.0-44.0); MEAN CORPUSCULAR HEMOGLOBIN 24.5 pg (26.0-34.0); MEAN CORPUSCULAR VOLUME 76 fL (80-100); MONOCYTES # (AUTO) 0.4 K/uL (0.1-1.0); MONOCYTES % (AUTO) 8.2 % (2.0-9.0); NEUTROPHILS # (AUTO) 3.1 K/uL (1.8-7.7); NEUTROPHILS % (AUTO) 63.6 % (40.0-70.0); PLATELET COUNT (AUTO) 164 K/uL (150-450); RED BLOOD CELL COUNT(AUTO) 5.49 MIL/uL (4.50-5.90); RED CELL DISTRIBUTION WIDTH 16.3 % (11.5-14.5)
[2019-06-03 08:11] LABS: GLUCOSE,POINT OF CARE 261 MG/DL (70-110)
[2019-06-03 08:15] LABS: ANION GAP 7 mmol/L (8-16); CALCIUM, TOTAL 9.1 mg/dL (8.8-10.5); CARBON DIOXIDE 28 mmol/L (22-29); CHLORIDE 102 mmol/L (98-107); CREATININE 0.65 mg/dL (0.60-1.30); GLOMERULAR FILTR. RATE CALC > 60 mL/min (>60); GLUCOSE,RANDOM 268 mg/dL (70-110); SODIUM SERUM 137 mmol/L (136-145); UREA NITROGEN, BLOOD 18 mg/dL (7-18)
[2019-06-03 08:20] LABS: ALANINE AMINOTRANSFERASE 40 U/L (12-78); ALBUMIN 3.4 g/dL (3.4-5.0); ALKALINE PHOSPHATASE 87 U/L (46-116); ASPARTATE AMINOTRANSFERASE 37 U/L (15-37); BILIRUBIN,TOTAL 0.4 mg/dL (0.1-1.0)
[2019-06-03] MEDS ORDERED: RisperiDONE 1 MG TABLET PO ONE (09:30)
[2019-06-03 11:31] LABS: AMPHET/METH SCREEN,URINE NEGATIVE (NEGATIVE); BARBITURATE SCREEN, URINE NEGATIVE (NEGATIVE); BENZODIAZEPINES SCREEN,URINE NEGATIVE (NEGATIVE); CANNABINOID SCREEN,URINE NEGATIVE (NEGATIVE); COCAINE SCREEN,URINE POSITIVE (NEGATIVE); METHADONE SCREEN, URINE NEGATIVE (NEGATIVE); OPIATE SCREEN,URINE NEGATIVE (NEGATIVE)
[2019-06-03 11:35] LABS: PHENCYCLIDINE SCREEN,URINE NEGATIVE (NEGATIVE)
[2019-06-03] MEDS ORDERED: HALOPERIDOL 5 MG TABLET PO PRN (11:45)
[2019-06-03] MEDS ORDERED: ZOLPIDEM TARTRATE 10 MG TABLET PO PRN (11:45)
[2019-06-03] MEDS ORDERED: LORazepam 2 MG TABLET PO PRN (11:45)
[2019-06-03] MEDS ORDERED: LOPERAMIDE HCL 2 MG CAPSULE PO PRN (13:45)
[2019-06-03] MEDS ORDERED: ALBUTEROL SULFATE HFA 90 MCG/PUFF 8 GM INHALER IH PRN (13:45)
[2019-06-03] MEDS ORDERED: NICOTINE 14 MG/24 HOUR PATCH TD PRN (13:45)
[2019-06-03] MEDS ORDERED: IBUPROFEN 400 MG TABLET PO PRN (13:45)
[2019-06-03] MEDS ORDERED: ACETAMINOPHEN 325 MG TABLET PO PRN (13:45)
[2019-06-03] MEDS ORDERED: DOCUSATE SODIUM 100 MG CAPSULE PO PRN (13:45)
[2019-06-03] MEDS ORDERED: GuaiFENesin/D-METHORPHAN [SUGAR-FREE] 200-20MG/10 ML SYRUP UDCUP PO PRN (13:45)
[2019-06-03] MEDS ORDERED: ONDANSETRON HCL 4 MG TABLET PO PRN (13:45)
[2019-06-03] MEDS ORDERED: PETROLATUM,WHITE 28 GM JELLY TP PRN (13:45)
[2019-06-03] MEDS ORDERED: MAG HYDROX/AL HYDROX/SIMETH ES 30 ML SUSPENSION UDCUP PO PRN (13:45)
[2019-06-03] MEDS ORDERED: CloNIDine HCL 0.1 MG TABLET PO PRN (13:45)
[2019-06-03] MEDS ORDERED: MAGNESIUM HYDROXIDE SUSPENSION 30 ML UDCUP PO PRN (13:45)
[2019-06-03 16:02] LABS: GLUCOSE,POINT OF CARE 303 MG/DL (70-110)
[2019-06-03] MEDS: MetFORMIN HCL 500 MG TABLET PO SCH (17:58)
[2019-06-03 19:26] LABS: GLUCOMETER DEV NAME(LOC) BV2S.; GLUCOSE,POINT OF CARE 356 MG/DL (70-110)
[2019-06-03 19:28] VITALS: BP 122/65
[2019-06-03] MEDS ORDERED: PNEUMOCOCCAL VACCINE POLYVALENT 0.5 ML VIAL [PPSV23] IM ONE (20:00)
[2019-06-03] MEDS ORDERED: INFLUENZA VIRUS VACCINE QVS 2019-20 (3YR+)/PF 60 MCG/0.5 ML SYRINGE IM ONE (20:00)
[2019-06-03] MEDS ORDERED: INSULIN LISPRO 100 UNITS/ML SQ PRN (20:30)
[2019-06-03] MEDS ORDERED: DEXTROSE 50%-WATER 25 GM/50 ML SYRINGE IVP PRN (20:30)
[2019-06-03] MEDS: RANITIDINE HCL 150 MG TABLET PO SCH (20:42)
[2019-06-03 21:22] LABS: GLUCOMETER DEV NAME(LOC) BV2X.; GLUCOSE,POINT OF CARE 360 MG/DL (70-110)
[2019-06-03] MEDS ORDERED: GLUCAGON,HUMAN RECOMBINANT 1 MG VIAL IM PRN (21:30)
[2019-06-03] MEDS: INSULIN LISPRO 100 UNITS/ML SQ PRN (21:38)
[2019-06-04 06:24] LABS: GLUCOMETER DEV NAME(LOC) BV2S.; GLUCOSE,POINT OF CARE 92 MG/DL (70-110)
[2019-06-04] MEDS: MetFORMIN HCL 500 MG TABLET PO SCH ×2 (06:36→16:16)
[2019-06-04 07:11] VITALS: BP 125/70
[2019-06-04 07:51] LABS: BASOPHILS % (AUTO) 0.8 % (0.0-2.0); EOSINOPHILS % (AUTO) 1.7 % (1.0-6.0); HEMATOCRIT 38.2 % (41-53); HEMOGLOBIN 12.1 g/dL (13.5-17.5); LYMPHOCYTES # (AUTO) 1.3 K/uL (1.0-4.8); LYMPHOCYTES % (AUTO) 25.7 % (22.0-44.0); MEAN CORPUSCULAR HEMOGLOBIN 23.9 pg (26.0-34.0); MEAN CORPUSCULAR HGB CONC 31.6 G/dL (31.0-37.0); MEAN CORPUSCULAR VOLUME 76 fL (80-100); MONOCYTES # (AUTO) 0.4 K/uL (0.1-1.0); MONOCYTES % (AUTO) 8.4 % (2.0-9.0); NEUTROPHILS # (AUTO) 3.2 K/uL (1.8-7.7); NEUTROPHILS % (AUTO) 63.4 % (40.0-70.0); PLATELET COUNT (AUTO) 200 K/uL (150-450); RED BLOOD CELL COUNT(AUTO) 5.05 MIL/uL (4.50-5.90)
[2019-06-04 08:10] LABS: ALANINE AMINOTRANSFERASE 34 U/L (12-78); ALBUMIN 2.9 g/dL (3.4-5.0); ALKALINE PHOSPHATASE 68 U/L (46-116); ANION GAP 7 mmol/L (8-16); ASPARTATE AMINOTRANSFERASE 30 U/L (15-37); BILIRUBIN,TOTAL 0.4 mg/dL (0.1-1.0); CALCIUM, TOTAL 8.7 mg/dL (8.8-10.5); CARBON DIOXIDE 26 mmol/L (22-29); CHLORIDE 103 mmol/L (98-107); CHOL/HDL RATIO 1.5 (4.2-7.3); CHOLESTEROL 139 mg/dL (131-200); CREATININE 0.75 mg/dL (0.60-1.30); GLOMERULAR FILTR. RATE CALC > 60 mL/min (>60); GLUCOSE,RANDOM 184 mg/dL (70-110); HDL CHOLESTEROL 92 mg/dL (40-60); LDL CHOL (CALC.) 40 mg/dL (0-130); POTASSIUM 3.7 mmol/L (3.5-5.1); SODIUM SERUM 136 mmol/L (136-145); THYROID STIMULATING HORMONE 0.49 uIU/mL (0.36-3.74); TOTAL PROTEIN, SERUM 6.1 g/dL (6.4-8.2); TRIGLYCERIDES 36 mg/dL (15-150); UREA NITROGEN, BLOOD 22 mg/dL (7-18)
[2019-06-04 08:14] VITALS: BP 140/71
[2019-06-04 08:19] LABS: HEMOGLOBIN A1C 10.1 % (4.5-6.2)
[2019-06-04] MEDS: CLOPIDOGREL BISULFATE 75 MG TABLET PO SCH (09:12)
[2019-06-04] MEDS: ATORVASTATIN CALCIUM 40 MG TABLET PO SCH (09:13)
[2019-06-04] MEDS: ASPIRIN 81 MG EC TABLET PO SCH (09:13)
[2019-06-04] MEDS: TAMSULOSIN HCL 0.4 MG CAPSULE PO SCH (09:13)
[2019-06-04] MEDS: AmLODIPine BESYLATE 10 MG TABLET PO SCH (09:13)
[2019-06-04 12:08] LABS: GLUCOMETER DEV NAME(LOC) BV2S.; GLUCOSE,POINT OF CARE 365 MG/DL (70-110)
[2019-06-04 16:05] LABS: GLUCOMETER DEV NAME(LOC) BV2S.; GLUCOSE,POINT OF CARE 248 MG/DL (70-110)
[2019-06-04] MEDS: DIVALPROEX SODIUM 500 MG DR TABLET PO SCH (16:16)
[2019-06-04] MEDS: INSULIN LISPRO 100 UNITS/ML SQ PRN ×2 (16:25→20:23)
[2019-06-04 16:58] VITALS: BP 102/61
[2019-06-04] MEDS ORDERED: DIVALPROEX SODIUM 250 MG ER TABLET PO SCH (17:00)
[2019-06-04 20:14] LABS: GLUCOMETER DEV NAME(LOC) BV2S.; GLUCOSE,POINT OF CARE 213 MG/DL (70-110)
[2019-06-04] MEDS: RisperiDONE 3 MG TABLET PO SCH (20:18)
[2019-06-04] MEDS: RANITIDINE HCL 150 MG TABLET PO SCH (20:18)
[2019-06-05] VITALS: BP 109/70
[2019-06-05 06:20] LABS: GLUCOMETER DEV NAME(LOC) BV2S.; GLUCOSE,POINT OF CARE 249 MG/DL (70-110)
[2019-06-05] MEDS: MetFORMIN HCL 500 MG TABLET PO SCH ×2 (06:37→18:22)
[2019-06-05] MEDS: INSULIN LISPRO 100 UNITS/ML SQ PRN ×4 (06:39→20:41)
[2019-06-05 08:07] VITALS: BP 131/67
[2019-06-05] MEDS: CLOPIDOGREL BISULFATE 75 MG TABLET PO SCH (08:17)
[2019-06-05] MEDS: DIVALPROEX SODIUM 500 MG DR TABLET PO SCH ×3 (08:17→18:22)
[2019-06-05] MEDS: AmLODIPine BESYLATE 10 MG TABLET PO SCH (08:17)
[2019-06-05] MEDS: ATORVASTATIN CALCIUM 40 MG TABLET PO SCH (08:17)
[2019-06-05] MEDS: TAMSULOSIN HCL 0.4 MG CAPSULE PO SCH (08:17)
[2019-06-05] MEDS: ASPIRIN 81 MG EC TABLET PO SCH (08:18)
[2019-06-05 12:56] LABS: GLUCOMETER DEV NAME(LOC) BV2S.; GLUCOSE,POINT OF CARE 213 MG/DL (70-110)
[2019-06-05 16:05] VITALS: BP 139/73
[2019-06-05 16:51] LABS: GLUCOMETER DEV NAME(LOC) BV2S.; GLUCOSE,POINT OF CARE 316 MG/DL (70-110)
[2019-06-05] MEDS: RANITIDINE HCL 150 MG TABLET PO SCH (20:18)
[2019-06-05] MEDS: RisperiDONE 3 MG TABLET PO SCH (20:18)
[2019-06-06 01:04] VITALS: BP 128/72
[2019-06-06 05:32] LABS: GLUCOMETER DEV NAME(LOC) BV2S.; GLUCOSE,POINT OF CARE 203 MG/DL (70-110)
[2019-06-06] MEDS: MetFORMIN HCL 500 MG TABLET PO SCH ×2 (06:42→16:49)
[2019-06-06] MEDS: INSULIN LISPRO 100 UNITS/ML SQ PRN ×2 (06:43→11:22)
[2019-06-06 06:44] LABS: GLUCOMETER DEV NAME(LOC) BV2S.; GLUCOSE,POINT OF CARE 202 MG/DL (70-110)
[2019-06-06] MEDS: ASPIRIN 81 MG EC TABLET PO SCH (08:09)
[2019-06-06] MEDS: DIVALPROEX SODIUM 500 MG DR TABLET PO SCH ×3 (08:09→16:49)
[2019-06-06] MEDS: TAMSULOSIN HCL 0.4 MG CAPSULE PO SCH (08:09)
[2019-06-06] MEDS: AmLODIPine BESYLATE 10 MG TABLET PO SCH (08:09)
[2019-06-06] MEDS: CLOPIDOGREL BISULFATE 75 MG TABLET PO SCH (08:09)
[2019-06-06] MEDS: ATORVASTATIN CALCIUM 40 MG TABLET PO SCH (08:09)
[2019-06-06 08:10] VITALS: BP 103/63
[2019-06-06 08:32] VITALS: BP 124/69
[2019-06-06 11:30] LABS: GLUCOMETER DEV NAME(LOC) BV2S.; GLUCOSE,POINT OF CARE 277 MG/DL (70-110)
[2019-06-06 16:10] VITALS: BP 115/68
[2019-06-06] MEDS: BENZTROPINE MESYLATE 1 MG TABLET PO SCH (16:50)
[2019-06-06 16:59] LABS: GLUCOMETER DEV NAME(LOC) BV2S.; GLUCOSE,POINT OF CARE 485 MG/DL (70-110)
[2019-06-06] MEDS ORDERED: INSULIN LISPRO 100 UNITS/ML SQ ONE (17:15)
[2019-06-06] MEDS: RisperiDONE 3 MG TABLET PO SCH (20:21)
[2019-06-06] MEDS: RANITIDINE HCL 150 MG TABLET PO SCH (20:22)
[2019-06-06 21:08] LABS: GLUCOMETER DEV NAME(LOC) BV2S.; GLUCOSE,POINT OF CARE 128 MG/DL (70-110)
[2019-06-07 00:05] VITALS: BP 108/63
[2019-06-07 06:25] LABS: GLUCOMETER DEV NAME(LOC) BV2S.; GLUCOSE,POINT OF CARE 239 MG/DL (70-110)
[2019-06-07] MEDS ORDERED: GlipiZIDE 5 MG TABLET PO SCH (06:30)
[2019-06-07] MEDS: MetFORMIN HCL 500 MG TABLET PO SCH ×2 (06:38→16:38)
[2019-06-07] MEDS: INSULIN LISPRO 100 UNITS/ML SQ PRN ×4 (06:39→20:37)
[2019-06-07] MEDS: DIVALPROEX SODIUM 500 MG DR TABLET PO SCH ×3 (08:14→16:37)
[2019-06-07] MEDS: ASPIRIN 81 MG EC TABLET PO SCH (08:14)
[2019-06-07] MEDS: CLOPIDOGREL BISULFATE 75 MG TABLET PO SCH (08:15)
[2019-06-07] MEDS: BENZTROPINE MESYLATE 1 MG TABLET PO SCH ×2 (08:15→16:38)
[2019-06-07] MEDS: AmLODIPine BESYLATE 10 MG TABLET PO SCH (08:15)
[2019-06-07] MEDS: ATORVASTATIN CALCIUM 40 MG TABLET PO SCH (08:15)
[2019-06-07] MEDS: TAMSULOSIN HCL 0.4 MG CAPSULE PO SCH (08:15)
[2019-06-07 08:17] VITALS: BP 139/70
[2019-06-07 11:10] LABS: GLUCOMETER DEV NAME(LOC) BV2S.; GLUCOSE,POINT OF CARE 202 MG/DL (70-110)
[2019-06-07 16:07] VITALS: BP 129/77
[2019-06-07 16:16] LABS: GLUCOMETER DEV NAME(LOC) BV2S.; GLUCOSE,POINT OF CARE 349 MG/DL (70-110)
[2019-06-07] MEDS: GlipiZIDE 5 MG TABLET PO SCH (16:37)
[2019-06-07 20:23] LABS: GLUCOMETER DEV NAME(LOC) BV2S.; GLUCOSE,POINT OF CARE 266 MG/DL (70-110)
[2019-06-07] MEDS: RisperiDONE 3 MG TABLET PO SCH (20:35)
[2019-06-07] MEDS: RANITIDINE HCL 150 MG TABLET PO SCH (20:35)
[2019-06-08 01:43] VITALS: BP 101/62
[2019-06-08 06:19] LABS: GLUCOMETER DEV NAME(LOC) BV2S.; GLUCOSE,POINT OF CARE 224 MG/DL (70-110)
[2019-06-08] MEDS: MetFORMIN HCL 500 MG TABLET PO SCH ×2 (06:34→16:50)
[2019-06-08] MEDS: INSULIN LISPRO 100 UNITS/ML SQ PRN ×3 (06:35→16:50)
[2019-06-08] MEDS: GlipiZIDE 5 MG TABLET PO SCH ×2 (06:35→16:38)
[2019-06-08] MEDS: ATORVASTATIN CALCIUM 40 MG TABLET PO SCH (08:08)
[2019-06-08] MEDS: AmLODIPine BESYLATE 10 MG TABLET PO SCH (08:08)
[2019-06-08] MEDS: BENZTROPINE MESYLATE 1 MG TABLET PO SCH ×2 (08:08→16:50)
[2019-06-08] MEDS: DIVALPROEX SODIUM 500 MG DR TABLET PO SCH ×3 (08:08→16:50)
[2019-06-08] MEDS: CLOPIDOGREL BISULFATE 75 MG TABLET PO SCH (08:08)
[2019-06-08] MEDS: MULTIVITAMINS WITH MINERALS, THERAPEUTIC TABLET PO SCH (08:08)
[2019-06-08] MEDS: ASPIRIN 81 MG EC TABLET PO SCH (08:08)
[2019-06-08] MEDS: TAMSULOSIN HCL 0.4 MG CAPSULE PO SCH (08:08)
[2019-06-08 08:12] VITALS: BP 111/68
[2019-06-08 11:15] LABS: GLUCOMETER DEV NAME(LOC) BV2S.; GLUCOSE,POINT OF CARE 172 MG/DL (70-110)
[2019-06-08 16:00] VITALS: BP 116/67
[2019-06-08 17:07] LABS: GLUCOMETER DEV NAME(LOC) BV2S.; GLUCOSE,POINT OF CARE 288 MG/DL (70-110)
[2019-06-08] MEDS: RisperiDONE 3 MG TABLET PO SCH (20:15)
[2019-06-08] MEDS: RANITIDINE HCL 150 MG TABLET PO SCH (20:15)
[2019-06-08 20:43] LABS: GLUCOMETER DEV NAME(LOC) BV2S.; GLUCOSE,POINT OF CARE 123 MG/DL (70-110)
[2019-06-09 06:30] LABS: GLUCOMETER DEV NAME(LOC) BV2S.; GLUCOSE,POINT OF CARE 323 MG/DL (70-110)
[2019-06-09 06:32] VITALS: BP 115/61
[2019-06-09] MEDS: MetFORMIN HCL 500 MG TABLET PO SCH ×2 (06:48→16:47)
[2019-06-09] MEDS: GlipiZIDE 5 MG TABLET PO SCH ×2 (06:48→16:06)
[2019-06-09] MEDS: INSULIN LISPRO 100 UNITS/ML SQ PRN ×4 (06:49→20:18)
[2019-06-09 09:04] VITALS: BP 110/72
[2019-06-09] MEDS: BENZTROPINE MESYLATE 1 MG TABLET PO SCH ×2 (10:28→16:47)
[2019-06-09] MEDS: ATORVASTATIN CALCIUM 40 MG TABLET PO SCH (10:28)
[2019-06-09] MEDS: DIVALPROEX SODIUM 500 MG DR TABLET PO SCH ×3 (10:28→16:47)
[2019-06-09] MEDS: TAMSULOSIN HCL 0.4 MG CAPSULE PO SCH (10:28)
[2019-06-09] MEDS: MULTIVITAMINS WITH MINERALS, THERAPEUTIC TABLET PO SCH (10:28)
[2019-06-09] MEDS: CLOPIDOGREL BISULFATE 75 MG TABLET PO SCH (10:29)
[2019-06-09] MEDS: ASPIRIN 81 MG EC TABLET PO SCH (10:29)
[2019-06-09] MEDS: AmLODIPine BESYLATE 10 MG TABLET PO SCH (10:29)
[2019-06-09 11:32] LABS: GLUCOMETER DEV NAME(LOC) BV2S.; GLUCOSE,POINT OF CARE 151 MG/DL (70-110)
[2019-06-09 16:16] VITALS: BP 123/60
[2019-06-09 16:20] LABS: GLUCOMETER DEV NAME(LOC) BV2S.; GLUCOSE,POINT OF CARE 345 MG/DL (70-110)
[2019-06-09] MEDS: RANITIDINE HCL 150 MG TABLET PO SCH (20:07)
[2019-06-09] MEDS: RisperiDONE 3 MG TABLET PO SCH (20:07)
[2019-06-09 20:28] LABS: GLUCOMETER DEV NAME(LOC) BV2S.; GLUCOSE,POINT OF CARE 244 MG/DL (70-110)
[2019-06-10] VITALS (11 sets, daily range): BP systolic 122–137; BP diastolic 64–79
[2019-06-10 06:26] LABS: GLUCOMETER DEV NAME(LOC) BV2S.; GLUCOSE,POINT OF CARE 209 MG/DL (70-110)
[2019-06-10] MEDS: MetFORMIN HCL 500 MG TABLET PO SCH ×2 (06:45→16:51)
[2019-06-10] MEDS: GlipiZIDE 5 MG TABLET PO SCH ×2 (06:45→16:51)
[2019-06-10] MEDS: INSULIN LISPRO 100 UNITS/ML SQ PRN ×4 (06:46→20:23)
[2019-06-10] MEDS: AmLODIPine BESYLATE 10 MG TABLET PO SCH (08:15)
[2019-06-10] MEDS: ASPIRIN 81 MG EC TABLET PO SCH (08:15)
[2019-06-10] MEDS: CLOPIDOGREL BISULFATE 75 MG TABLET PO SCH (08:15)
[2019-06-10] MEDS: ATORVASTATIN CALCIUM 40 MG TABLET PO SCH (08:15)
[2019-06-10] MEDS: MULTIVITAMINS WITH MINERALS, THERAPEUTIC TABLET PO SCH (09:27)
[2019-06-10] MEDS: BENZTROPINE MESYLATE 1 MG TABLET PO SCH ×2 (09:27→16:51)
[2019-06-10] MEDS: DIVALPROEX SODIUM 500 MG DR TABLET PO SCH ×3 (09:27→16:51)
[2019-06-10] MEDS: TAMSULOSIN HCL 0.4 MG CAPSULE PO SCH (09:28)
[2019-06-10 11:44] LABS: GLUCOMETER DEV NAME(LOC) BV2S.; GLUCOSE,POINT OF CARE 201 MG/DL (70-110)
[2019-06-10 16:23] LABS: GLUCOMETER DEV NAME(LOC) BV2S.; GLUCOSE,POINT OF CARE 196 MG/DL (70-110)
[2019-06-10] MEDS: RANITIDINE HCL 150 MG TABLET PO SCH (20:18)
[2019-06-10] MEDS: RisperiDONE 3 MG TABLET PO SCH (20:18)
[2019-06-10 20:34] LABS: GLUCOMETER DEV NAME(LOC) BV2S.; GLUCOSE,POINT OF CARE 242 MG/DL (70-110)
[2019-06-11 00:06] VITALS: BP 128/62
[2019-06-11 00:10] VITALS: BP 128/75
[2019-06-11] MEDS: GlipiZIDE 5 MG TABLET PO SCH ×2 (06:32→16:59)
[2019-06-11] MEDS: MetFORMIN HCL 500 MG TABLET PO SCH ×2 (06:32→16:58)
[2019-06-11] MEDS: INSULIN LISPRO 100 UNITS/ML SQ PRN ×4 (06:32→21:10)
[2019-06-11 06:34] LABS: GLUCOMETER DEV NAME(LOC) BV2S.; GLUCOSE,POINT OF CARE 322 MG/DL (70-110)
[2019-06-11 07:38] LABS: BASOPHILS % (AUTO) 0.9 % (0.0-2.0); EOSINOPHILS % (AUTO) 2.9 % (1.0-6.0); HEMATOCRIT 35.6 % (41-53); HEMOGLOBIN 11.5 g/dL (13.5-17.5); LYMPHOCYTES # (AUTO) 1.6 K/uL (1.0-4.8); LYMPHOCYTES % (AUTO) 39.3 % (22.0-44.0); MEAN CORPUSCULAR HEMOGLOBIN 24.6 pg (26.0-34.0); MEAN CORPUSCULAR HGB CONC 32.3 G/dL (31.0-37.0); MEAN CORPUSCULAR VOLUME 76 fL (80-100); MONOCYTES # (AUTO) 0.5 K/uL (0.1-1.0); MONOCYTES % (AUTO) 13.7 % (2.0-9.0); NEUTROPHILS # (AUTO) 1.7 K/uL (1.8-7.7); NEUTROPHILS % (AUTO) 43.2 % (40.0-70.0); PLATELET COUNT (AUTO) 151 K/uL (150-450); RED BLOOD CELL COUNT(AUTO) 4.68 MIL/uL (4.50-5.90); RED CELL DISTRIBUTION WIDTH 15.5 % (11.5-14.5)
[2019-06-11 08:01] LABS: ALANINE AMINOTRANSFERASE 34 U/L (12-78); ALBUMIN 2.8 g/dL (3.4-5.0); ALKALINE PHOSPHATASE 87 U/L (46-116); ANION GAP 6 mmol/L (8-16); ASPARTATE AMINOTRANSFERASE 29 U/L (15-37); BILIRUBIN,TOTAL 0.3 mg/dL (0.1-1.0); CALCIUM, TOTAL 9.2 mg/dL (8.8-10.5); CARBON DIOXIDE 29 mmol/L (22-29); CHLORIDE 98 mmol/L (98-107); CREATININE 0.78 mg/dL (0.60-1.30); GLOMERULAR FILTR. RATE CALC > 60 mL/min (>60); GLUCOSE,RANDOM 345 mg/dL (70-110); POTASSIUM 4.5 mmol/L (3.5-5.1); SODIUM SERUM 133 mmol/L (136-145); THYROID STIMULATING HORMONE 1.71 uIU/mL (0.36-3.74); TOTAL PROTEIN, SERUM 5.8 g/dL (6.4-8.2); UREA NITROGEN, BLOOD 24 mg/dL (7-18)
[2019-06-11 08:04] VITALS: BP 117/62
[2019-06-11] MEDS: DIVALPROEX SODIUM 500 MG DR TABLET PO SCH ×3 (08:29→16:58)
[2019-06-11] MEDS: CLOPIDOGREL BISULFATE 75 MG TABLET PO SCH (08:29)
[2019-06-11] MEDS: AmLODIPine BESYLATE 10 MG TABLET PO SCH (08:29)
[2019-06-11] MEDS: BENZTROPINE MESYLATE 1 MG TABLET PO SCH ×2 (08:29→16:58)
[2019-06-11] MEDS: MULTIVITAMINS WITH MINERALS, THERAPEUTIC TABLET PO SCH (08:29)
[2019-06-11] MEDS: TAMSULOSIN HCL 0.4 MG CAPSULE PO SCH (08:30)
[2019-06-11] MEDS: ATORVASTATIN CALCIUM 40 MG TABLET PO SCH (08:30)
[2019-06-11] MEDS: ASPIRIN 81 MG EC TABLET PO SCH (08:30)
[2019-06-11 11:14] LABS: GLUCOMETER DEV NAME(LOC) BV2S.; GLUCOSE,POINT OF CARE 279 MG/DL (70-110)
[2019-06-11 16:12] VITALS: BP 104/65
[2019-06-11 17:12] LABS: GLUCOMETER DEV NAME(LOC) BV2S.; GLUCOSE,POINT OF CARE 340 MG/DL (70-110)
[2019-06-11] MEDS: RisperiDONE 3 MG TABLET PO SCH (20:21)
[2019-06-11] MEDS: RANITIDINE HCL 150 MG TABLET PO SCH (20:21)
[2019-06-11 20:55] LABS: GLUCOMETER DEV NAME(LOC) BV2S.; GLUCOSE,POINT OF CARE 211 MG/DL (70-110)
[2019-06-12 02:27] VITALS: BP 131/73
[2019-06-12 06:13] LABS: GLUCOMETER DEV NAME(LOC) BV2S.; GLUCOSE,POINT OF CARE 255 MG/DL (70-110)
[2019-06-12] MEDS: MetFORMIN HCL 500 MG TABLET PO SCH ×2 (06:29→16:48)
[2019-06-12] MEDS: GlipiZIDE 5 MG TABLET PO SCH ×2 (06:29→16:48)
[2019-06-12] MEDS: INSULIN LISPRO 100 UNITS/ML SQ PRN ×4 (06:34→21:24)
[2019-06-12 07:54] LABS: APPEARANCE,URINE CLEAR (CLEAR); BILIRUBIN,URINE NEGATIVE (NEGATIVE); GLUCOSE, URINE (UA) 250 mg/dL (NEGATIVE); KETONES,URINE TRACE mg/dL (NEGATIVE); LEUKOCYTE ESTERASE ,URINE NEGATIVE (NEGATIVE); NITRATE,URINE NEGATIVE (NEGATIVE); OCCULT BLOOD,URINE NEGATIVE (NEGATIVE); PROTEIN,URINE NEGATIVE (NEGATIVE)
[2019-06-12 08:03] LABS: BACTERIA,URINE None Seen /HPF (None Seen); RBC,URINE None Seen /HPF (0-2); WBC,URINE None Seen /HPF (0-5)
[2019-06-12 08:08] VITALS: BP 147/72
[2019-06-12] MEDS: ASPIRIN 81 MG EC TABLET PO SCH (08:13)
[2019-06-12] MEDS: CLOPIDOGREL BISULFATE 75 MG TABLET PO SCH (08:13)
[2019-06-12] MEDS: BENZTROPINE MESYLATE 1 MG TABLET PO SCH ×2 (08:13→16:48)
[2019-06-12] MEDS: MULTIVITAMINS WITH MINERALS, THERAPEUTIC TABLET PO SCH (08:13)
[2019-06-12] MEDS: AmLODIPine BESYLATE 10 MG TABLET PO SCH (08:13)
[2019-06-12] MEDS: ATORVASTATIN CALCIUM 40 MG TABLET PO SCH (08:14)
[2019-06-12] MEDS: TAMSULOSIN HCL 0.4 MG CAPSULE PO SCH (08:14)
[2019-06-12] MEDS: DIVALPROEX SODIUM 500 MG DR TABLET PO SCH ×3 (08:14→16:48)
[2019-06-12 11:12] LABS: GLUCOMETER DEV NAME(LOC) BV2S.; GLUCOSE,POINT OF CARE 340 MG/DL (70-110)
[2019-06-12 16:19] VITALS: BP 124/61
[2019-06-12 16:51] LABS: GLUCOMETER DEV NAME(LOC) BV2S.; GLUCOSE,POINT OF CARE 367 MG/DL (70-110)
[2019-06-12 20:50] LABS: GLUCOMETER DEV NAME(LOC) BV2S.; GLUCOSE,POINT OF CARE 194 MG/DL (70-110)
[2019-06-12 21:21] VITALS: BP 127/65
[2019-06-12] MEDS: RANITIDINE HCL 150 MG TABLET PO SCH (21:21)
[2019-06-12] MEDS: RisperiDONE 3 MG TABLET PO SCH (21:21)
[2019-06-13 00:18] VITALS: BP 130/60
[2019-06-13] MEDS: GlipiZIDE 5 MG TABLET PO SCH (06:30)
[2019-06-13 06:31] LABS: GLUCOMETER DEV NAME(LOC) BV2S.; GLUCOSE,POINT OF CARE 247 MG/DL (70-110)
[2019-06-13] MEDS: MetFORMIN HCL 500 MG TABLET PO SCH (06:31)
[2019-06-13] MEDS: INSULIN LISPRO 100 UNITS/ML SQ PRN ×2 (06:32→10:56)
[2019-06-13] MEDS: BENZTROPINE MESYLATE 1 MG TABLET PO SCH (08:12)
[2019-06-13] MEDS: MULTIVITAMINS WITH MINERALS, THERAPEUTIC TABLET PO SCH (08:12)
[2019-06-13] MEDS: CLOPIDOGREL BISULFATE 75 MG TABLET PO SCH (08:12)
[2019-06-13] MEDS: ATORVASTATIN CALCIUM 40 MG TABLET PO SCH (08:12)
[2019-06-13] MEDS: DIVALPROEX SODIUM 500 MG DR TABLET PO SCH ×2 (08:12→12:36)
[2019-06-13] MEDS: ASPIRIN 81 MG EC TABLET PO SCH (08:13)
[2019-06-13] MEDS: TAMSULOSIN HCL 0.4 MG CAPSULE PO SCH (08:13)
[2019-06-13 08:15] VITALS: BP 116/96
[2019-06-13] MEDS: AmLODIPine BESYLATE 10 MG TABLET PO SCH (08:16)
[2019-06-13 11:04] LABS: GLUCOMETER DEV NAME(LOC) BV2S.; GLUCOSE,POINT OF CARE 328 MG/DL (70-110)
[2019-06-13] MEDS ORDERED: BENZ1TAB10 PO (13:08)
[2019-06-13] MEDS ORDERED: RISP3 PO (13:08)
== END 2019-06-13 15:05 | disposition home or self-care (01) | DRG 750 ==
LOC: EMS 07:28 → B2S 16:59
PROVIDERS: ADMIT Psychiatry & Neurology Psychiatry; ATTEND Psychiatry & Neurology Psychiatry
DX: F20.0 Paranoid schizophrenia (principal); R45.850 Homicidal ideations; E11.9 Type 2 diabetes mellitus without complications; F17.210 Nicotine dependence, cigarettes, uncomplicated; N40.0 Benign prostatic hyperplasia without lower urinary tract symptoms; I10 Essential (primary) hypertension; G40.909 Epilepsy, unspecified, not intractable, without status epilepticus; E78.5 Hyperlipidemia, unspecified; F31.9 Bipolar disorder, unspecified; Z79.899 Other long term (current) drug therapy; Z91.14 Patient's other noncompliance with medication regimen
CPT/HCPCS: 83036; 84443; G0480; J1815

== ENCOUNTER 2021-07-31 10:44 | Emergency (ER) | payer MEDICARE, OTHER ==
[~2021-07-31] VITALS: Ht 177.8 cm; Wt 63.6 kg
[~2021-07-31 10:44] MED LIST changes: +AMLO-258 PO; -AMLO10TA7 PO; -ASPI-1182 PO; +ASPI-1444 PO; +BENZ1TAB10 PO; -CLOP75TA3 PO; +CLOP75TA60 PO; +DIVA-112 PO; -DIVA-78 PO; -LISI40TA4 PO; +METF-1211 PO; -METF-960 PO; +RISP3TAB35 PO; -RISP4 PO
[2021-07-31 12:32] VITALS: BP 138/64
== END 2021-07-31 15:03 | disposition home or self-care (01) ==
LOC: EMS 10:44
DX: F69 Unspecified disorder of adult personality and behavior (principal); M79.604 Pain in right leg; M79.605 Pain in left leg; E11.9 Type 2 diabetes mellitus without complications; I10 Essential (primary) hypertension; F20.9 Schizophrenia, unspecified; F17.210 Nicotine dependence, cigarettes, uncomplicated; Z79.82 Long term (current) use of aspirin; Z79.84 Long term (current) use of oral hypoglycemic drugs
CPT/HCPCS: 99283; Z7502